=== PATIENT | female | born 1995 | race Caucasian/White ===

== ENCOUNTER 2020-07-18 10:12 | Emergency (ER) | payer OTHER ==
[~2020-07-18] VITALS: Ht 170.2 cm; Wt 86.3 kg
[2020-07-18 10:15] VITALS: BP 136/77
--- NOTE | 2020-07-18 10:36 | RAD ---
AP, lateral and oblique views of the left ankle. No comparison is available. Indication: Stepped wrong now with pain. No fracture, subluxation or dislocation is seen. The ankle mortise is intact. There is lateral soft t issue swelling seen over the lateral malleolus. Cannot exclude ligamentous injury. Impression: Soft tissue swelling laterally, cannot exclude ligamentous injury. Electronically signed by: Jesus Carlisle MD (07/18/2020 10:34 AM) [id number]
--- NOTE | 2020-07-18 11:00 | PHYS DOC ---
Past History Past Medical History: Depression Past Surgical History: No Surgical History Alcohol Use: Occasionally General Adult EDM: Chief Complaint: ANKLE PROBLEM HPI: HPI: Patient is a 24-year-old female with left ankle pain. States she stepped on some uneven ground and rolled her ankle in prior to arrival. Patient denies any other injury and has been able to ambulate with a limp. Is not take anything for pain. Denies any prior trauma to this ankle. States she otherwise has been well. Review of Systems: Review of Systems: All other systems within normal limits except for as noted in the HPI Allergies: Allergies: Allergies Uncoded Allergies Type Severity Reaction Last Updated Verified SULFA Allergy Unknown 07/18/20 Physical Exam: PE: Constitutional: Well developed, well nourished, no acute distress, non-toxic appearance. [] HENT: Normocephalic, atraumatic, bilateral external ears normal, nose normal. [] Eyes: PERRLA, conjunctiva normal, no discharge. [] Neck: No rigidity, supple, no stridor. [] Cardiovascular: Regular rate and rhythm, brisk cap refill [] Lungs & Thorax: Non labored symmetric respirations, no tachypnea or respiratory distress [] Abdomen: Soft, nondistended. Skin: Warm, dry, no erythema, no rash. [] Back: Unremarkable Extremities: No deformities, range of motion grossly intact, no lower extremity edema. Left ankle exam: Swelling of lateral malleolus, tenderness below malleolus, no point tenderness on malleolus or medial malleolus. No fifth metatarsal tenderness. No erythema [] Neurologic: Alert and oriented X 3, no focal deficits noted. [] Psychologic: Affect normal, judgement normal, mood normal. [] Current Patient Data: Vital Signs: Vital Signs Date Time Temp Pulse Resp B/P (MAP) Pulse Ox O2 Delivery O2 Flow Rate FiO2 07/18/20 10:15 97.0 98 16 136/77 (96) 96 Room Air EKG: EKG: [] Radiology/Procedures: Radiology/Procedures: AP, lateral and oblique views of the left ankle. No comparison is available. Indication: Stepped wrong now with pain. No fracture, subluxation or dislocation is seen. The ankle mortise is intact. There is lateral soft tissue swelling seen over the lateral malleolus. Cannot exclude ligamentous injury. Impression: Soft tissue swelling laterally, cannot exclude ligamentous injury. [] Heart Score: C/O Chest Pain: No Risk Factors: Risk Factors: DM, Current or recent (<one month) smoker, HTN, HLP, family history of CAD, obesity. Risk Scores: Score 0 - 3: 2.5% MACE over next 6 weeks - Discharge Home Score 4 - 6: 20.3% MACE over next 6 weeks - Admit for Clinical Observation Score 7 - 10: 72.7% MACE over next 6 weeks - Early Invasive Strategies Course & Med Decision Making: Course & Med Decision Making Pertinent Labs and Imaging studies reviewed. (See chart for details) [] Dragon Disclaimer: Dragon Disclaimer: This electronic medical record was generated, in whole or in part, using a voice recognition dictation system. Departure Departure: Impression: Primary Impression: Left ankle sprain Disposition: 01 DC HOME SELF CARE/HOMELESS Condition: STABLE Referrals: TANA LOVING APRN (PCP) Patient Instructions: RICE - Routine Care for Injuries RANGEL NARVAEZ MD Jul 18, 2020 11:00
== END 2020-07-18 11:27 | disposition home or self-care (01) ==
LOC: ER 10:12
DX: S93.402A Sprain of unspecified ligament of left ankle, initial encounter (principal); Z88.2 Allergy status to sulfonamides; X50.9XXA Other and unspecified overexertion or strenuous movements or postures, initial encounter; Y93.89 Activity, other specified; Y92.89 Other specified places as the place of occurrence of the external cause; Y99.8 Other external cause status
CPT/HCPCS: 73610; 99283